=== PATIENT | female | born 1995 ===

== ENCOUNTER 2022-04-08 11:42 | Emergency (ER) | payer MEDICAID ==
[~2022-04-08] VITALS: Ht 170.2 cm; Wt 109.1 kg
[2022-04-08 11:58] VITALS: BP 131/76
[2022-04-08] MEDS ORDERED: PENI500T2 PO (12:36)
== END 2022-04-08 12:56 | disposition home or self-care (01) ==
LOC: ER 11:44
DX: J02.9 Acute pharyngitis, unspecified (principal)
CPT/HCPCS: 99283